=== PATIENT | male | born 2000 | race Caucasian/White ===

== ENCOUNTER 2023-12-22 16:53 | Emergency (ER) | payer OTHER ==
[~2023-12-22] VITALS: Ht 185.4 cm; Wt 82.2 kg
[2023-12-22] MEDS: ACETAMINOPHEN TAB 650MG DOSE (2X325MG) PO ONE (22:11)
[2023-12-22 22:42] VITALS: BP 122/84; TEMP 96.8; O2SAT 100
== END 2023-12-22 23:19 | disposition home or self-care (01) ==
LOC: M ED 16:53
DX: R51.9 Headache, unspecified (principal); F17.290 Nicotine dependence, other tobacco product, uncomplicated